=== PATIENT | male | born 1980 | race Caucasian/White ===

== ENCOUNTER 2022-04-05 03:43 | Emergency (ER) | payer OTHER ==
[2022-04-05 04:38] VITALS: BP 168/100; PULSE 75; RESP 16; TEMP 98.1; BMI 27.1
[2022-04-05] MEDS ORDERED: ACETAMINOPHEN 500 MG TABLET (FP) PO ONE (04:44)
[2022-04-05] MEDS ORDERED: ACETAMINOPHEN 325 MG TABLET (FP) ONE (04:51)
== END 2022-04-05 05:01 ==
LOC: JER 03:43
DX: M54.50 Low back pain, unspecified (principal)
CPT/HCPCS: 99283-25